=== PATIENT | female | born 1940 | race Caucasian/White ===

== ENCOUNTER → 2019-09-25 | Outpatient (CLI) | payer MEDICARE ==
[~2019-09-25] MED LIST: ENALAPRIL MALEA20 MG; MAXIDE
== END ==
LOC: M.RAD 11:45
DX: R05 Cough (principal); R07.89 Other chest pain; R06.02 Shortness of breath; M48.55XA Collapsed vertebra, not elsewhere classified, thoracolumbar region, initial encounter for fracture; I70.0 Atherosclerosis of aorta

== ENCOUNTER → 2021-06-02 | Outpatient (CLI) | payer MEDICARE | LOC: M.RAD 09:05 | PROVIDERS: ATTEND Family Medicine | DX: Z13.820 Encounter for screening for osteoporosis (principal); M81.0 Age-related osteoporosis without current pathological fracture ==

== ENCOUNTER 2021-07-01 13:57 | Emergency (ER) | payer MEDICARE ==
[~2021-07-01] VITALS: Ht 154.9 cm; Wt 63.5 kg
--- NOTE | ~2021-07-01 | H ---
[address] [address] HISTORY AND PHYSICAL Name: ANANT PARIKH Neela Room: [address]#: [id number] Admission: 07/01/21 Attend Phys: Olivier Savage Discharge: 07/01/21 Date of : 42 Report #: [id number] THIS REPORT FOR: cc: Sheila Renee MD, Katrina MD [facility],Medical Records Staff ~ For History and Physical please refer to the orthopedic note in the patient's medical record. Patient was not admitted to [facility]. By: 1316Medical Records Staff ONELIA /JULIAN
[2021-07-01 14:04] VITALS: BP 109/66
[2021-07-01] MEDS ORDERED: ASA81BEC PO (14:08)
[2021-07-01] MEDS ORDERED: PRAVACHOL40 MG PO (14:08)
[2021-07-01] MEDS ORDERED: HYDROCHLOROTH12.5 M2 PO (14:08)
--- NOTE | 2021-07-01 15:32 | EKG ---
[place] [address] ELECTROCARDIOGRAM REPORT Name: ANANT PARIKH Room: [facility]#: [id number] Admission: 07/01/21 Attend Phys: Discharge: Date of : 42 Date of Service: 07/01/21 1518 Report #: [id number] THIS REPORT FOR: //name// [facility] ED Test Date: 2021-07-01 Test Time: 15:18:59 Pat Name: ANANT PARIKH Department: Room: Gender: F Supervisor Parking Lot: : [phone] Requested By: Rhiannon Summers Order Number: [id number] MD: Jose Jenkins Measurements Intervals [place] Rate: 66 P: -27 [place]: 143 QRS: 69 QRSD: 109 T: 53 QT: 413 QTc: 433 Interpretive Statements Sinus rhythm Low voltage, precordial leads Compared to ECG 07/01/2011 16:16:28 Low QRS voltage now present Electronically Signed On 07-01-2021 15:32:03 CDT by Jose Jenkins [email or web address] <ELECTRONICALLY SIGNED> By: Jose Jenkins MD, [facility] 07/01/21 1532 1518 1518 Jose Jenkins MD, [facility] /EPI
[2021-07-01 16:08] LABS: ABSOLUTE BASOPHILS 0.1 thou/uL (0.0-0.2); ABSOLUTE EOSINOPHILS 0.1 thou/uL (0.0-0.7); ABSOLUTE LYMPHOCYTES 1.7 thou/uL (0.8-5.3); ABSOLUTE MONOCYTES 0.8 thou/uL (0.0-1.2); ABSOLUTE NEUTROPHILS 9.8 thou/uL (1.6-8.1); BASOPHILS 0.6 %; EOSINOPHILS 0.9 %; HEMATOCRIT 41.4 % (37.0-47.0); HEMOGLOBIN 13.4 gm/dL (12.0-15.0); LYMPHOCYTES 13.3 %; MCH 29.3 pg (26.0-34.0); MCHC 32.4 g/dL (28.0-37.0); MCV 90.4 fL (80.0-100.0); MONOCYTES 6.3 %; MPV 10.5 fl. (7.2-11.1); NUCLEATED RBCS 0 /100WBC; PLATELET COUNT* 231 thou/uL (150-400); POLYS 78.9 %; RBC 4.59 mil/uL (4.20-5.00); RDW-CV 13.4 % (10.5-14.5); WBC 12.4 thou/uL (4.0-11.0)
[2021-07-01 16:16] LABS: CALCIUM 9.4 mg/dL (8.5-10.1); POTASSIUM 4.2 mmol/L (3.5-5.1)
[2021-07-01 16:20] LABS: TOTAL BILIRUBIN 0.3 mg/dL (<0.1-1.0); TOTAL PROTEIN 7.2 g/dL (6.4-8.2)
--- NOTE | 2021-07-01 17:45 | NUR ---
HAM CASAS: [phone]
[2021-07-01] MEDS ORDERED: HYDROCODON-ACE1 EAC7 PO (19:45)
[2021-07-01] MEDS ORDERED: AUGMENTIN 875-1 EACH PO (19:52)
[2021-07-01 21:25] VITALS: BP 131/66
== END 2021-07-01 19:24 | disposition still patient (30) ==
LOC: M.ERS 13:57 → M.TBA-ER 16:49
PROVIDERS: Nurse Practitioner Family
DX: S81.012A Laceration without foreign body, left knee, initial encounter (principal); Z20.822 Contact with and (suspected) exposure to COVID-19; R55 Syncope and collapse; E78.00 Pure hypercholesterolemia, unspecified; I10 Essential (primary) hypertension; Z90.49 Acquired absence of other specified parts of digestive tract; Z90.711 Acquired absence of uterus with remaining cervical stump; Z79.82 Long term (current) use of aspirin; Z79.899 Other long term (current) drug therapy; W18.39XA Other fall on same level, initial encounter; Y93.89 Activity, other specified; Y92.89 Other specified places as the place of occurrence of the external cause; Y99.8 Other external cause status